=== PATIENT | female | born 1975 | race Hispanic/Latino ===

== ENCOUNTER → 2024-05-07 | Day surgery (SDC) | payer OTHER ==
[~2024-05-07] MED LIST: CALCIUM ACETAT667 MG PO; FENTANYL CITRATE/PF 100MCG/2 ML INJ ONE; GLIPIZIDE ER5 MG PO; GLUCAGON FOR INJ 1 MG VIAL ONE; HYOSCYAMINE SULFATE 0.5 MG/ML INJ ONE; INSULIN REGULAR, HUMAN 100 UNIT/1 ML ONE; JARDIANCE25 MG PO; LIDOCAINE HCL 2% LOCAL INJ 5 ML SDV VIAL INJ ONE; LOSARTAN POTAS100 MG PO; METFORMIN HCL850 MG PO; OMEGA 3 1,0001 EACH PO; PROPOFOL IV EMULSION 10 MG/ML 20 ML VIAL ONE
[2024-05-07] MEDS: LACTATED RINGER'S 1,000 ML ONE (06:31)
[2024-05-07] MEDS: INSULIN REGULAR, HUMAN 100 UNIT/1 ML ONE (08:50)
[2024-05-07 09:00] VITALS: BP 123/78; PULSE 83; RESP 18; TEMP 97.5; O2SAT 100
== END | disposition home or self-care (01) ==
LOC: OR 06:00
PROVIDERS: ATTEND Internal Medicine Gastroenterology
DX: Z12.11 Encounter for screening for malignant neoplasm of colon (principal); K63.5 Polyp of colon; K63.89 Other specified diseases of intestine; K64.8 Other hemorrhoids; I10 Essential (primary) hypertension; E11.9 Type 2 diabetes mellitus without complications; Z01.810 Encounter for preprocedural cardiovascular examination; Z79.84 Long term (current) use of oral hypoglycemic drugs; Z79.899 Other long term (current) drug therapy
CPT/HCPCS: 45380; 45385; 93005; J1610; J1980; J2001; J2704; J3010; J7121; 45378